=== PATIENT | female | born 2000 | race Caucasian/White ===

== ENCOUNTER → 2019-02-03 | Outpatient (CLI) | payer BC, OTHER ==
--- NOTE | 2019-02-03 11:23 | Diagnostic Imaging Report ---
INDICATION: Hand injury with pain. TECHNIQUE: Three views of the left hand were obtained. FINDINGS: The alignment is normal. There is no fracture or dislocation. The soft tissues are unremarkable. IMPRESSION: No acute fracture or dislocation. Dictated by: Dictated on workstation # [id number]
== END ==
LOC: RAD FS 11:11
PROVIDERS: ATTEND Nurse Practitioner
DX: S69.92XA Unspecified injury of left wrist, hand and finger(s), initial encounter (principal)
CPT/HCPCS: 73130